=== PATIENT | male | born 1990 | race African-American/Black ===

== ENCOUNTER 2016-11-24 18:30 | Emergency (ER) | payer SELFPAY ==
[~2016-11-24] VITALS: Ht 170.2 cm; Wt 70.5 kg
[~2016-11-24 18:30] MED LIST: BACT800T5 PO; CEPH500C3 PO; HYDR-3533 PO; IBUP800T23 PO
[2016-11-24 18:32] VITALS: BP 116/69; PULSE 76; RESP 14; TEMP 98.3; O2SAT 95
--- NOTE | 2016-11-24 19:08 | PD ---
HPI Chief Complaint: Injury Time Seen by Provider: 19:05 Travel History International Travel<30 days: No Contact w/Intl Traveler<30days: No Traveled to known affect area: No History of Present Illness HPI 27-year-old [id number] white male presents to emergency department who complains of pain and swelling of his right Finger proximal phalanx. 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 Approximately 2 weeks ago he noticed some swelling and thickening of the volar pad of the proximal phalanx. In the last few days is becoming increasingly hard and tender. He does not recall any injury although he does get cuts on his hands frequently. He has had no fever chills. No discharge. No numbness, tingling or weakness. Pain is mild. He has not had a tetanus shot over 5 years. [facility] Past Medical History Medical History: Denies Significant Hx Tetanus Vaccination: > 5 Years Past Surgical History Surgical History: No Previous Surgery Social History Alcohol Use: Yes Tobacco Use: Yes (black and mild) Substance Use: Yes Allergies-Medications (Allergen,Severity, Reaction): Coded Allergies: No Known Allergies (Verified , 11/24/16) Reported Meds & Prescriptions Reported Meds & Active Scripts Active Lortab (Hydrocodone-Acetaminophen) 5-325 Mg Tab 1 Tab PO Q8HR PRN Bactrim DS (Sulfamethoxazole-Trimethoprim) 800-160 Mg Tab 1 Tab PO BID Keflex (Cephalexin) 500 Mg Cap 500 Mg PO Q6H Review of Systems Except as stated in HPI: all other systems reviewed are Neg General / Constitutional: No: Fever, Chills Eyes: No: Blurred Vision, Photophobia HENT: No: Headaches Cardiovascular: No: Chest Pain or Discomfort, Palpitations Respiratory: No: Cough, Shortness of Breath Gastrointestinal: No: Vomiting, Diarrhea Genitourinary: No: Urgency, Frequency Musculoskeletal: Positive: Pain, No: Myalgias, Arthralgias, Limited ROM, Weakness Skin: No Rash, No Itching Physical Exam Narrative GENERAL: This is a well-nourished, well-developed patient, in no apparent distress. SKIN: No rashes, ecchymoses or lesions. Warm and dry. HEAD: Atraumatic. Normocephalic. EYES: PERRL, EOMI, no discharge or injection. No scleral icterus. EARS: Clear NOSE: Nasal turbinates appear normal. THROAT: Mucosa pink and moist. Airway patent. NECK: Trachea midline. supple, moves head freely. LUNGS: Clear to auscultation. CV: Regular in rhythm. ABDOMEN: Soft nontender. EXT: No clubbing cyanosis. Examination of the right index finger reveals swelling, tenderness and some induration to the volar pad. This extends from the flexor crease of the MCP up into the flexor crease of the PIP. There is no fluctuance or pointing. Patient lives extend and flex his finger at the joints freely. He has intact sensation with good Refill. There is no erythema or warmth. Data Data Last Documented VS Vital Signs Date Time Temp Pulse Resp B/P Pulse Ox O2 Delivery O2 Flow Rate FiO2 11/24/16 18:32 98.3 76 14 116/69 95 Room Air Orders Finger ([id number]) (11/24/16 19:04) Tetanus/Diphtheria Tox Adult (Tetanus/Di (11/24/16 19:15) Lidocaine 1% Inj (50 Ml) (Xylocaine 1% I (11/24/16 19:30) Bupivacaine Pf 0.5% Inj (Marcaine Pf 0.5 (11/24/16 19:30) Cephalexin (Keflex) (11/24/16 20:00) Sulfamet-Trimeth Ds 800-160 Mg (Bactrim (11/24/16 20:00) Wound Culture And Gram Stain (11/24/16 19:56) MDM Medical Decision Making Medical Screen Exam Complete: Yes Emergency Medical Condition: Yes Medical Record Reviewed: Yes Interpretation(s) Last 24 hours Impressions Finger X-Ray 11/24/161903 Signed Impressions: Service Date/Time: Thursday, November 24, 2016 19:22 - CONCLUSION: Focal soft tissue swelling. Bry Kim MD Differential Diagnosis MDM: High Differential diagnoses: Abscess, folliculitis, cellulitis, lymphangitis, abrasion, contact dermatitis Narrative Course An incision and drainage has been performed. Patient's given Keflex 1 g and Bactrim DS by mouth. Dressing applied. This is right index finger abscess Procedures Procedure Narrative I&D abscess: After the risks and benefits were discussed the following procedure was performed. The skin is prepped and draped in the usual sterile fashion using Betadine. The abscess is anesthetized with 1% lidocaine and 0.5% Marcaine. After adequate anesthesia, an 11 blade scalpel is used to make a 1 centimeter central incision. Perulant material is expressed and cultured. Loculations are broken up using curved Monica forceps. The wound is cleansed deeply using dilute Betadine and peroxide on Q-tips. The wound is packed open using iodoform gauze. A clean dressing is applied. The patient tolerated the procedure well. There was no complications. Follow-up instructions were given to the patient. Diagnosis Primary Impression: Abscess of right index finger Patient Instructions: General Instructions Additional Instructions: Rest. Elevation. keep clean and dry. Daily wound care with soap, water and Neosporin. Three Advil every 6 hours. Keflex, Septra DS, and Lortab. Recheck in the ER in 2 days. Return to the ER for any problems. Med/Other Pt SpecificInfo: Prescription(s) given, Wound Care Scripts Hydrocodone-Acetaminophen (Lortab)5-325 Mg Tab1 Tab PO Q8HR PRN (PAIN) #12 TAB Prov:Kayla Rowan MD 11/24/16 Sulfamethoxazole-Trimethoprim (Bactrim DS)800-160 Mg Tab1 Tab PO BID #20 TAB Prov:Kayla Rowan MD 11/24/16 Cephalexin (Keflex)500 Mg [id number] Mg PO Q6H #28 CAP Prov:Kayla Rowan MD 11/24/16 Disposition: 01 DISCHARGE HOME Condition: Stable Antonio Jaime Nov 24, 2016 19:07
[2016-11-24] MEDS ORDERED: TETANUS/DIPHTHERIA TOXOID ADULT 0.5 ML VIAL IM ONE (19:15)
[2016-11-24] MEDS ORDERED: BUPIVACAINE HCL PF 0.5% 30 ML VIAL INFIL ONE (19:30)
[2016-11-24] MEDS ORDERED: LIDOCAINE HCL 1% 50 ML VIAL INFIL ONE (19:30)
--- NOTE | 2016-11-24 19:45 | RADRPT ---
EXAM DATE/TIME: 11/24/2016 19:22 [facility] COMPARISON: No previous studies available for comparison. INDICATIONS : Right second finger pain and swelling. MEDICAL HISTORY : None. SURGICAL HISTORY : None. ENCOUNTER: Initial ACUITY: 3 weeks PAIN SCORE: 5/10 LOCATION: Right second finger, proximal FINDINGS: There is soft tissue swelling at the proximal aspect of the second digit at the lateral anterior aspe ct of the second digit. A fracture is not seen. There is a well-corticated bony density seen at the a nterior base of the middle phalanx likely related to an accessory ossicle given it is well corticated . CONCLUSION: Focal soft tissue swelling. Bry Kim MD on November 24, 2016 at 19:42 Board Certified Radiologist. This report was verified electronically.
[2016-11-24] MEDS ORDERED: BACT800T5 PO (19:57)
[2016-11-24] MEDS ORDERED: HYDR-3533 PO (19:57)
[2016-11-24] MEDS ORDERED: CEPH-460 PO (19:57)
[2016-11-24] MEDS ORDERED: CEPHALEXIN MONOHYDRATE 500 MG CAP PO ONE (20:00)
[2016-11-24] MEDS ORDERED: SULFAMETHOXAZOLE-TRIMETHOPRIM DS 800-160 MG TAB PO ONE (20:00)
== END 2016-11-24 20:13 | disposition home or self-care (01) ==
LOC: NEPB 18:30
DX: L02.511 Cutaneous abscess of right hand (principal); Z23 Encounter for immunization; F10.10 Alcohol abuse, uncomplicated; Z72.0 Tobacco use; F19.10 Other psychoactive substance abuse, uncomplicated
CPT/HCPCS: 10061; 73140; 87070; 87205; 90471; 90714